=== PATIENT | female | born 1980 | race Caucasian/White ===

== ENCOUNTER → 2016-09-20 | Outpatient (CLI) | payer BC ==
[~2016-09-20] MED LIST: CLR10 PO; MONT1TAB3 PO; PRENTAB69 PO
== END | disposition home or self-care (01) ==
LOC: C.PAPS 16:56
PROVIDERS: ATTEND Obstetrics & Gynecology
DX: Z01.419 Encounter for gynecological examination (general) (routine) without abnormal findings (principal)

== ENCOUNTER → 2016-12-02 | Outpatient (CLI) | payer OTHER ==
[2016-12-02 14:44] LABS: BASO % 0.7 %; BASO ABS # 0.05 K/uL (0-0.2); COMPLETE YES; EOS % 1.8 %; IG% 0.1 %; LYMPH % 32.3 %; LYMPH ABS # 2.36 K/uL (1.2-3.4); MEAN CELL VOLUME 86.9 fL (80-100); MEAN CORPUSCULAR HEMOGLOBIN 29.7 pg (25-34); MEAN CORPUSCULAR HGB CONC 34.1 g/dl (32-36); MEAN PLATELET VOLUME 11.2 fL (7.4-10.4); MONO % 6.2 %; NEUT % 58.9 %; PLATELET COUNT 235 K/uL (130-400); RED BLOOD COUNT 4.72 M/uL (4.2-5.4)
[2016-12-02 15:01] LABS: URINE APPEARANCE CLEAR (CLEAR); URINE BILIRUBIN NEG (NEG); URINE COLOR YELLOW; URINE EPITHELIAL CELL AUTO 20-30 /lpf (0-5); URINE NITRITE NEG (NEG); URINE SPECIFIC GRAVITY 1.014 (1.000-1.030); UROBILINOGEN NEG (NEG)
[2016-12-02 15:12] LABS: MANUAL MICROSCOPIC REQUIRED? NO; REVIEW REQ? NO
[2016-12-02 15:13] LABS: BLOOD UREA NITROGEN 12 mg/dl (7-18); BUN/CREATININE RATIO 13.8 (10-20); CALCIUM 8.8 mg/dl (8.5-10.1); CARBON DIOXIDE 28 mmol/L (21-32); CHLORIDE 105 mmol/L (98-107); CREATININE 0.87 mg/dl (0.60-1.20); GLUCOSE 91 mg/dl (70-99); POTASSIUM 3.8 mmol/L (3.5-5.1); SODIUM 140 mmol/L (136-145)
[2016-12-02 15:53] LABS: RATIO 4333.3 mcg/mg (0-30.0)
== END | disposition home or self-care (01) ==
LOC: C.LAB1850 13:40
PROVIDERS: ATTEND Internal Medicine
DX: R80.9 Proteinuria, unspecified (principal)

== ENCOUNTER 2017-01-16 21:29 | Emergency (ER) | payer OTHER ==
[~2017-01-16] VITALS: Ht 162.6 cm; Wt 61.8 kg
[~2017-01-16 21:29] MED LIST changes: -CLR10 PO; -MONT1TAB3 PO
[2017-01-16 21:34] VITALS: TEMP 36.4; Ht 162.6 cm; Wt 61.8 kg
[2017-01-16] MEDS ORDERED: RABIES VACCINE (IMOVAX) HUMAN DIPL CELL 2.5 INTER.UNIT/ML SYR IM. ONE (22:00)
[2017-01-16] MEDS ORDERED: RABIES IMMUNE GLOBULIN (HUMAN) 150 INTER.UNIT/ML 2 ML VIAL IM. ONE (22:00)
--- NOTE | 2017-01-16 22:12 | EMERGENCY ROOM VISIT NOTE ---
ED Visit Note First contact with patient: 21:36 CHIEF COMPLAINT: bat in house HISTORY OF PRESENT ILLNESS: This 36 yo patient presents to the emergency department stating there was a bat in the house last night. There is concern for rabies exposure as there is about a house. She denies being bit. She is here for rabies prophylaxis. She denies any other medical complaints. REVIEW OF SYSTEMS: A 6 system review of systems was completed with positives and pertinent negatives listed in the HPI. ALLERGIES: Sulfa MEDICATIONS: None PMH: D&E. SOCIAL HISTORY: No drug use. PHYSICAL EXAM: Vital Signs: Reviewed Nurse's notes, vital signs stable. GENERAL : Pleasant Female, in no acute distress, well-developed, well-nourished. HEAD: Atraumatic, without temporal or scalp tenderness. EYES: PERRLA, EOMI, no discharge or injection. SKIN: Without by coyle. Capillary refill less than 2 seconds. NEUROLOGICAL: Alert and oriented to person place and time. Normal sensation to light and sharp touch. MUSCULOSKELETAL: No erythema, edema or atrophy to extremities EMERGENCY DEPARTMENT COURSE: I examined the patient. The patient was given RIG 20 Units/kg. . The patient was given rabies vaccine given IM. The patient was observed for 20 minutes with no reaction. The patient was discharged home in stable condition. DIAGNOSIS: Rabies prophylaxis DISCHARGE INSTRUCTIONS: Today is day 0. Return to the ER on days 3, 7, and 14 for subsequent vaccinations. Return sooner or follow up with your family doctor for signs of infection (increased redness, discharge, fever) or for complications with the vaccine series. Current/Historical Medications Scheduled PRN Loratadine (Claritin), 10 MG PO DAILY PRN for Seasonal Allergies Montelukast Sodium (Singulair), 10 MG PO DAILY PRN for Seasonal Allergies Allergies Coded Allergies: Sulfa Drugs (Unverified Allergy, Unknown, hives, 03/30/15) Vital Signs Date Time Temp Pulse Resp B/P (MAP) Pulse Ox O2 Delivery O2 Flow Rate FiO2 01/16/17 21:34 36.4 69 18 97 Room Air Departure Information Impression Primary Impression: Rabies, need for prophylactic vaccination against Dispostion Home / Self-Care Condition GOOD Forms WORK / SCHOOL INSTRUCTIONS, HOME CARE DOCUMENTATION FORM, IMPORTANT VISIT INFORMATION Patient Instructions Rabies, My [facility] Additional Instructions Today is day 0. Return to the ER on days 3, 7, and 14 for subsequent vaccinations. Return sooner or follow up with your family doctor for signs of infection (increased redness, discharge, fever) or for complications with the vaccine series.
[2017-01-16 23:20] VITALS: BP 121/79; PULSE 66; O2SAT 98
== END 2017-01-16 23:20 | disposition home or self-care (01) ==
LOC: C.EDB 21:30 → C.EDD 23:20
DX: Z23 Encounter for immunization (principal); Z20.3 Contact with and (suspected) exposure to rabies; Z88.2 Allergy status to sulfonamides

== ENCOUNTER 2017-01-19 20:36 | Emergency (ER) | payer OTHER ==
[~2017-01-19] VITALS: Ht 162.6 cm; Wt 61.7 kg
[2017-01-19 20:41] VITALS: TEMP 36.8; Ht 162.6 cm; Wt 61.7 kg
--- NOTE | 2017-01-19 21:21 | EMERGENCY ROOM VISIT NOTE ---
ED Visit Note First contact with patient: 21:08 CHIEF COMPLAINT: Rabies prophylaxis, 2nd vaccination HISTORY OF PRESENT ILLNESS: This 36-year-old female patient presents to the emergency department, with her family, for their 2nd rabies shot. The patient noted a bat in the house on January 16, and was seen that day to have her first rabies vaccination. She is unaware of any bites. The patient has not had any complications from the previous injections. They deny any other complaints. REVIEW OF SYSTEMS: A 6 system review of systems was completed with positives and pertinent negatives listed in the HPI. ALLERGIES: Sulfa MEDICATIONS: Claritin, Singulair PMH: Allergic rhinitis PHYSICAL EXAM: Vital Signs: Reviewed Nurse's notes, vital signs stable. GENERAL : This is a 36-year-old female, in no acute distress, well-developed, well- nourished. HEAD: Atraumatic, without temporal or scalp tenderness. EYES: PERRLA, EOMI, no discharge or injection. SKIN: Normal. NEUROLOGICAL: Alert and cooperative. Sensory and motor functions grossly intact. EMERGENCY DEPARTMENT COURSE: I examined the patient. The patient was given Imovax 1ml IM. The patient was observed for 20 minutes with no reaction. The patient was discharged home in stable condition. DIAGNOSIS: Rabies prophylaxis DISCHARGE INSTRUCTIONS: Continue vaccination schedule as directed. Return for any complications. Current/Historical Medications Scheduled PRN Loratadine (Claritin), 10 MG PO DAILY PRN for Seasonal Allergies Montelukast Sodium (Singulair), 10 MG PO DAILY PRN for Seasonal Allergies Allergies Coded Allergies: Sulfa Drugs (Unverified Allergy, Unknown, hives, 03/30/15) Vital Signs Date Time Temp Pulse Resp B/P (MAP) Pulse Ox O2 Delivery O2 Flow Rate FiO2 01/19/17 22:01 86 20 121/74 100 01/19/17 20:41 36.8 84 16 118/89 97 Room Air Medications Administered Medications (Trade) Dose Ordered Sig/Willie Route Start Time Stop Time Status Last Admin Dose Admin Rabies Vaccine Human Diploid Cell (Imovax Rabies) 2.5 interunit ONCE ONCE IM. 01/19/17 21:30 01/19/17 21:31 DC 01/19/17 22:01 2.5 INTERUNIT Departure Information Impression Primary Impression: Rabies, need for prophylactic vaccination against Dispostion Home / Self-Care Condition GOOD Referrals Santi Turner M.D. (PCP) Patient Instructions My [facility] Additional Instructions Continue vaccination schedule as directed. Return on day 7 (01/23/17) and 14 (01/30/17) Return for any complications.
[2017-01-19] MEDS ORDERED: RABIES VACCINE (IMOVAX) HUMAN DIPL CELL 2.5 INTER.UNIT/ML SYR IM. ONE (21:30)
[2017-01-19] MEDS ORDERED: MONT1TAB3 PO (21:57)
[2017-01-19] MEDS ORDERED: CLR10 PO (21:57)
[2017-01-19 22:01] VITALS: BP 121/74; PULSE 86; O2SAT 100
== END 2017-01-19 22:02 | disposition home or self-care (01) ==
LOC: C.EDB 20:37 → C.EDD 22:02
DX: Z23 Encounter for immunization (principal); Z20.3 Contact with and (suspected) exposure to rabies

== ENCOUNTER 2017-01-23 18:35 | Emergency (ER) | payer OTHER ==
[~2017-01-23] VITALS: Ht 162.6 cm; Wt 62.3 kg
[~2017-01-23 18:35] MED LIST changes: +CLR10 PO; +MONT1TAB3 PO; -PRENTAB69 PO
[2017-01-23 18:54] VITALS: BP 134/92; PULSE 88; TEMP 36.8; O2SAT 97; Ht 162.6 cm; Wt 62.3 kg
--- NOTE | 2017-01-23 19:18 | EMERGENCY ROOM VISIT NOTE ---
ED Visit Note First contact with patient: 19:05 CHIEF COMPLAINT: Rabies prophylaxis HISTORY OF PRESENT ILLNESS: This 36-year-old female patient presents to the emergency department for their third rabies shot. The patient has not had any complications from the previous injections. They deny any other complaints. REVIEW OF SYSTEMS: A 6 system review of systems was completed with positives and pertinent negatives listed in the HPI. ALLERGIES: See chart MEDICATIONS: See chart PMH: Unchanged from previous visit. PHYSICAL EXAM: Vital Signs: Reviewed Nurse's notes, vital signs stable. GENERAL : Pleasant and cooperative, in no acute distress, well-developed, well- nourished. HEAD: Atraumatic, without temporal or scalp tenderness. EYES: PERRLA, EOMI, no discharge or injection. SKIN: Normal. NEUROLOGICAL: Alert and cooperative. Sensory and motor functions grossly intact. EMERGENCY DEPARTMENT COURSE: I examined the patient. The patient was given Imovax 1ml IM. The patient was observed for 20 minutes with no reaction. The patient was discharged home in stable condition. Current/Historical Medications Scheduled PRN Loratadine (Claritin), 10 MG PO DAILY PRN for Seasonal Allergies Montelukast Sodium (Singulair), 10 MG PO DAILY PRN for Seasonal Allergies Allergies Coded Allergies: Sulfa Drugs (Unverified Allergy, Unknown, hives, 03/30/15) Vital Signs Date Time Temp Pulse Resp B/P (MAP) Pulse Ox O2 Delivery O2 Flow Rate FiO2 01/23/17 18:54 36.8 88 18 134/92 97 Room Air Medications Administered Medications (Trade) Dose Ordered Sig/Willie Route Start Time Stop Time Status Last Admin Dose Admin Rabies Vaccine Human Diploid Cell (Imovax Rabies) 2.5 interunit ONCE ONCE IM. 01/23/17 19:30 01/23/17 19:31 DC 01/23/17 19:36 2.5 INTERUNIT Departure Information Impression Primary Impression: Encounter for repeat administration of rabies vaccination Dispostion Home / Self-Care Condition GOOD Referrals Santi Turner M.D. (PCP) Patient Instructions My [facility] Additional Instructions Continue vaccination schedule as directed. Your next visit should be in one week on Monday, 01/30. Return for any complications.
[2017-01-23] MEDS ORDERED: RABIES VACCINE (IMOVAX) HUMAN DIPL CELL 2.5 INTER.UNIT/ML SYR IM. ONE (19:30)
== END 2017-01-23 20:06 | disposition home or self-care (01) ==
LOC: C.EDB 18:37 → C.EDD 20:06
DX: Z23 Encounter for immunization (principal); Z20.3 Contact with and (suspected) exposure to rabies

== ENCOUNTER 2017-01-30 18:20 | Emergency (ER) | payer OTHER ==
[~2017-01-30] VITALS: Ht 162.6 cm; Wt 62.1 kg
[2017-01-30 18:46] VITALS: TEMP 36.8; Ht 162.6 cm; Wt 62.1 kg
[2017-01-30] MEDS ORDERED: RABIES VACCINE (IMOVAX) HUMAN DIPL CELL 2.5 INTER.UNIT/ML SYR IM. ONE (19:00)
--- NOTE | 2017-01-30 19:05 | EMERGENCY ROOM VISIT NOTE ---
History First contact with patient: 18:55 Chief Complaint: RABIES VACCINE REPEAT VISIT Stated Complaint: LAST RABIES History of Present Illness The patient is a 36 year old female who presents to the Emergency Room for a fourth and final rabies immunization after being exposed to a bat in the home while sleeping. The patient has had no adverse reactions to previous injections. Review of Systems 6 system review was performed and was negative except for pertinent positives and negatives as indicated in history of present illness Past Medical/Surgical History Well documented on previous visits Social History Smoking Status: Never Smoker Alcohol Use: none Marital Status: Housing Status: lives with family, lives with significant other Occupation Status: employed Current/Historical Medications Scheduled PRN Loratadine (Claritin), 10 MG PO DAILY PRN for Seasonal Allergies Montelukast Sodium (Singulair), 10 MG PO DAILY PRN for Seasonal Allergies Physical Exam Vital Signs Date Time Temp Pulse Resp B/P (MAP) Pulse Ox O2 Delivery O2 Flow Rate FiO2 01/30/17 18:46 36.8 70 18 128/80 96 Room Air Physical Exam CONSTITUTIONAL: Healthy and well nourished. HEENT: Normocephalic, atraumatic. No scleral icterus. INTEGUMENTARY: No rash or other significant dermatologic conditions noted. NEUROLOGIC: No focal neurologic deficits noted. Medical Decision & Procedures ED Course Patient history and physical exam were performed. Vital signs were reviewed and were normal. The patient was administered Imovax without adverse reaction. The patient was advised that if there is any potential rabies exposure in the future, the healthcare provider should be advised that the patient has already undergone this rabies immunization series. The patient was happy with plan of care, and denied any pain at the time of discharge. Medical Decision Blood Pressure Screening Patient's blood pressure: Normal blood pressure Impression Primary Impression: Need for prophylactic vaccination against rabies Departure Information Dispostion Home / Self-Care Forms HOME CARE DOCUMENTATION FORM, IMPORTANT VISIT INFORMATION Patient Instructions My [facility] Additional Instructions If you have any potential rabies exposure in the future, advise your healthcare provider that you have already undergone this immunization series.
[2017-01-30 19:59] VITALS: BP 126/80; PULSE 79; O2SAT 100
== END 2017-01-30 20:00 | disposition home or self-care (01) ==
LOC: C.EDB 18:20 → C.EDD 20:00
DX: Z20.3 Contact with and (suspected) exposure to rabies (principal); Z23 Encounter for immunization